=== PATIENT | female | born 1975 | race Caucasian/White ===

== ENCOUNTER 2016-12-17 08:29 | Day surgery (SDC) | payer OTHER ==
[~2016-12-17 08:29] MED LIST: DIPHENHYDRAMINE HCL 50 MG/ML VIAL ONE; EPINEPHRINE INJ 1 MG/10 ML DISP.SYRIN ONE; FLUMAZENIL INJ 0.5 MG/5 ML VIAL IV ONE; GLUCAGON,HUMAN RECOMB 1 MG INJ ONE; NALOXONE HCL INJ/PF 0.4 MG/1 ML SDV ONE; ONDANSETRON HCL INJ/PF 4 MG/2 ML SDV ONE; PROMETHAZINE HCL INJ 25 MG/1 ML VIAL ONE
[2016-12-17] MEDS: MIDAZOLAM 2 MG/2 ML INJ ONE ×3 (09:02→09:09)
[2016-12-17] MEDS: FENTANYL CITRATE INJ/PF 100 MCG/2 ML AMPUL ONE ×2 (09:04→09:06)
--- NOTE | 2016-12-17 09:15 | Operative Report ---
Operative Report DATE OF SURGERY: 12/17/16 Operative Report: The risks benefits and alternatives of the procedure explained to the patient in detail and informed consent is obtained that GIF Olympus video scope was inserted into the patient's mouth and hypopharynx the esophagus is identified intubated and insufflated the scope was then advanced through the esophagus stomach and duodenum retroflexion maneuver is done the esophagus stomach and first and second portions of the duodenum examined PREOPERATIVE DIAGNOSIS: Dysphagia POSTOPERATIVE DIAGNOSIS: Esophageal rings and furrows suggestive of eosinophilic esophagitis. Hiatal hernia. Esophagitis. Gastritis OPERATION: EGD with biopsy SURGEON: MAGALIE DREW ANESTHESIA: Moderate Sedation - 4 mg of Versed, 50 g of fentanyl. TISSUE REMOVED OR ALTERED: Esophageal specimens to confirm eosinophilic esophagitis. Gastritis status post biopsy rule out Helicobacter pylori COMPLICATIONS: None. ESTIMATED BLOOD LOSS: none. INTRAOPERATIVE FINDINGS: As described above. PROCEDURE: Patient tolerated the procedure well. No immediate postprocedure complications are noted. Patient is discharged in good condition. Discharge date 12/17/2016. Discharge diet: Regular. Discharge activity: Regular. 2-3 week follow-up to discuss findings. Await on biopsies. Patient is instructed to call the office or proceed to the emergency room should there be any further problems or questions.
[2016-12-17 10:31] VITALS: BP 112/79
== END 2016-12-17 10:30 | disposition home or self-care (01) ==
LOC: END 08:29
PROVIDERS: ATTEND Internal Medicine Gastroenterology
PROC: 0DB58ZX Excision of Esophagus, Via Natural or Artificial Opening Endoscopic, Diagnostic (ICD-10-PCS; 2016-12-17)
PROC: 0DB68ZX Excision of Stomach, Via Natural or Artificial Opening Endoscopic, Diagnostic (ICD-10-PCS; principal; 2016-12-17 09:00)
DX: K29.50 Unspecified chronic gastritis without bleeding (principal); B96.81 Helicobacter pylori [H. pylori] as the cause of diseases classified elsewhere; K44.9 Diaphragmatic hernia without obstruction or gangrene; K20.9 Esophagitis, unspecified; G43.909 Migraine, unspecified, not intractable, without status migrainosus; Z79.899 Other long term (current) drug therapy
CPT/HCPCS: 43239; 88342 ×2; 88305 ×2; J2250; J3010; J0171; J1200; J1610; J2310; J2405; J2550; J3490

== ENCOUNTER 2018-11-13 09:19 | Outpatient (CLI) | payer OTHER | END 2018-11-13 09:55 | disposition home or self-care (01) | LOC: LC 09:19 | PROVIDERS: ATTEND Obstetrics & Gynecology | PROC: 4A1HXCZ Monitoring of Products of Conception, Cardiac Rate, External Approach (ICD-10-PCS; principal; 2018-11-13) | DX: Z34.93 Encounter for supervision of normal pregnancy, unspecified, third trimester (principal) | CPT/HCPCS: 59025 ==

== ENCOUNTER 2018-11-27 21:40 | Inpatient (IN) | payer OTHER ==
[2018-11-27 22:37] LABS: ABSOLUTE BASOPHILS # (AUTO) 0.1 10^3/uL (0.0-0.2); ABSOLUTE EOSINOPHILS # (AUTO) 0.2 10^3/uL (0.0-0.6); ABSOLUTE LYMPHOCYTES (AUTO) 2.3 10^3/uL (0.5-4.7); ABSOLUTE MONOCYTES (AUTO) 0.9 10^3/uL (0.1-1.4); ABSOLUTE NEUT (AUTO) 8.8 10^3/uL (1.7-8.2); BASOPHILS % (AUTO) 1.1 % (0-2); EOSINOPHILS % (AUTO) 1.2 % (0-6); HEMATOCRIT 34.7 % (36.0-47.0); HEMOGLOBIN 11.9 g/dL (12.0-15.5); LYMPHOCYTES % (AUTO) 18.4 % (13-45); MEAN CORPUSCULAR HEMOGLOBIN 29.5 pg (27.0-33.4); MEAN CORPUSCULAR HGB CONC 34.4 g/dL (32.0-36.0); MEAN CORPUSCULAR VOLUME 86 fl (80-97); MONOCYTES % (AUTO) 7.2 % (3-13); PLATELET COUNT 193 10^3/uL (150-450); RED BLOOD COUNT 4.05 10^6/uL (3.72-5.28); RED CELL DISTRIBUTION WIDTH 14.8 % (11.5-14.0); SEGMENTED NEUTROPHILS % (AUTO) 72.1 % (42-78); TOTAL CELLS COUNTED % (AUTO) 100 %; WHITE BLOOD COUNT 12.3 10^3/uL (4.0-10.5)
[2018-11-27 22:54] LABS: URINE AMPHETAMINES SCREEN NEGATIVE; URINE BARBITURATES SCREEN NEGATIVE; URINE BENZODIAZEPINES SCREEN NEGATIVE; URINE COCAINE SCREEN NEGATIVE; URINE MARIJUANA (THC) SCREEN NEGATIVE; URINE METHADONE SCREEN NEGATIVE; URINE PHENCYCLIDINE SCREEN NEGATIVE
[2018-11-27] MEDS ORDERED: LIDOCAINE 1% INJ-PF (10 MG/ML) 30 ML SDV ONE (22:54)
[2018-11-27] MEDS ORDERED: DINOPROSTONE 10 MG VAGINAL INSERT.SR ONE (22:54)
[2018-11-27] MEDS ORDERED: MISOPROSTOL 0.2 MG TABLET ONE (22:54)
[2018-11-27] MEDS ORDERED: OXYTOCIN/NORMAL SALINE 20 UNIT/1,000 ML RTUINJ ONE (22:54)
[2018-11-27] MEDS ORDERED: OXYTOCIN 10 UNIT/ML VIAL ONE (22:54)
--- NOTE | 2018-11-28 06:13 | Admission Physical ---
Datetime Report Generated by CPN: 11/28/2018 06:12 CURRENT ADMISSION Chief Complaint: Scheduled Induction of Labor Indication for Induction: Chronic Primary/Essential HTN; Maternal Diabetes; Other Indication for Induction- Other: AMA Admit Impression : Induction of Labor Admit Plan: Admit to Unit; Initiate Labor Induction Protocol ALLERGIES Medication Allergies: No Medication Allergies: No Known Allergies (11/27/2018) Latex: No Latex Allergies Food Allergies: n/a Environmental Allergies: n/a OBSTETRICAL HISTORY EDC: 12/05/2018 00:00 : 3 Para: 2 Term: 2 : 0 SAB: 0 IAB: 0 Ectopic: 0 Livin Cesareans: 0 VBACs: 0 Multiple Births: 0 Gestational Diabetes: Yes Rh Sensitization: No Incompetent Cervix: No ASTER: No Infertility: No ART Treatment: No Uterine Anomaly: No IUGR: No Hx Previous C/S: No Macrosomia: No Hx Loss/Stillborn: No PIH: No Hx : No Placenta Previa/Abruption: No Depression/PP Depression: No PTL/PROM: No Post Hemorrhage: No Current Procedures: Ultrasound; NST Obstetrical History Comments: G1 - G2 - G3 - SEE RECORDS Alcohol: No Marijuana : No Cocaine: No Other Illicit Drugs: No Cigarettes: Never Smoker. 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 Breast at age 19 INFECTIOUS HISTORY Gonorrhea: No Genital Herpes: No Chlamydia: No Tuberculosis: No Syphilis: No Hepatitis: No HIV/AIDS Exposure: No Rash or Viral Illness: No HPV: No PHYSICAL EXAM General: Normal HEENT: Normal Neurologic: Normal Thyroid: Normal Heart: Normal Lungs: Normal Breast: Normal Back: Normal Abdomen: Normal Genitourinary Exam: Normal Extremities: Normal DTRs: Normal Pelvic Type: Adequate Vital Signs: Reviewed; Within Normal Limits VAGINAL EXAM Dilatation: 2 Effacement: 25 Station: -3 MEMBRANES Pooling: Negative Membranes: Intact FETUS A EGA: 39.0 Monitoring: External US FHR- Baseline: 120 Variability: Moderate 6-25bpm Accelerations: 15X15 Decelerations: None FHR Category: Category I Estimated Weight (gm): 3600 Presentation: Vertex PLANS FOR LABOR AND DELIVERY Labor and Delivery: Plan Pain Management: Natural; Medications; Epidural Feeding Preference: Breast Benefit of Breast Feed Discussed: Yes Circumcision: Yes INFORMED CONSENT Signature: with User ID: [email or web address]
--- NOTE | 2018-11-28 13:15 | L&D Progress Notes ---
PROGRESS NOTES Datetime Report Generated by CPN: 11/28/2018 13:15 PROGRESS NOTE Impression: Normal Progression of Labor; Reassuring Heart Rate Procedures: Artificial ROM; Sterile Vag Exam Plan: Induction Vital Signs : Reviewed; Within Normal Limits Comment: at 39 wks for IOL d/t GDM and AMA. s/p Cervidil overnight, pt now uncomfortable with increasing contractions. GBS negative. VE 4/50/-2. AROM w/ clear blood tinged fluid. Pt considering an epidural. Position changes encouarged. Attending MD is Dr Maher VAGINAL EXAM Dilatation: 4 Dilatation: 2 Effacement: 50 Effacement: 25 Station: -2 Station: -3 Contractions: 1-2 LAST VAGINAL EXAM-NURSING Dilitation: 3-4 Dilitation: 2.0 Effacement: 50 Effacement: 25 Station: -2 Station: -3 Contractions: Uterine Irritability noted. MEMBRANES Pooling: Negative Membranes: Ruptured Membranes: Intact Amniotic Fluid Color: Bloody FETUS A FHR - Baseline: 145 Monitoring: External US Variability: Moderate 6-25bpm Accelerations: 15X15 Decelerations: None : 39.0 Estimated Weight (gm): 3600 Presentation: Vertex SIGNATURE SIGNATURE: [id number];[id number];[id number] SIGNATURE: [id number];[id number] SIGNATURE: [id number] Assignment: Adriana Reed MD Signature: with User ID: [email or web address] : with User ID: [email or web address]
[2018-11-28] MEDS: RINGERS SOLUTION,LACTATED 1,000 ML IV PRN ×3 (13:34→15:34)
[2018-11-28] MEDS ORDERED: RINGERS SOLUTION,LACTATED 300 ML IV ONE (13:37)
[2018-11-28] MEDS ORDERED: FENTANYL CITRATE INJ/PF 100 MCG/2 ML AMPUL ONE (13:54)
[2018-11-28] MEDS ORDERED: EPHEDRINE SULFATE INJ 50 MG/1 ML AMPULE ONE (13:54)
[2018-11-28] MEDS ORDERED: PHENYLEPHRINE HCL INJ/PF 10 MG/1 ML SDV ONE (13:54)
[2018-11-28] MEDS ORDERED: BUPIVACAINE HCL 0.25 % INJ/PF (2.5 MG/1 ML) 30 ML VIAL ONE (13:55)
[2018-11-28] MEDS ORDERED: FENTANYL/BUPIVACAINE/NS/PF 300 MCG/150 ML RTUINJ EPI ONE (13:55)
[2018-11-28] MEDS ORDERED: LIDOCAINE 1.5%/EPINEPHRINE INJ-PF 30 ML SDV ONE (13:55)
--- NOTE | 2018-11-28 15:22 | L&D Progress Notes ---
PROGRESS NOTES Datetime Report Generated by CPN: 11/28/2018 15:21 PROGRESS NOTE Impression: Normal Progression of Labor Procedures: Sterile Vag Exam Plan: Continue Present Management Plan Other: position changes Informed Consent Obtained: Vaginal Delivery Vital Signs : Reviewed; Within Normal Limits Comment: Epidural in place and pt is comfortable. Laboring spontaneously since the Cervidil used overnight. GBS negative, VE /-2 Pt to high fowlers position due to variable decels. Anticipate . Attending MD is Dr Younger VAGINAL EXAM Dilatation: 6 Effacement: 90 Station: -2 Contractions: q2-3 Dilitation: 6.0 Effacement: 80 Station: -2 FETUS A FHR - Baseline: 140 Monitoring: External US Variability: Moderate 6-25bpm Accelerations: 15X15 Decelerations: Variable FHR Category: Category II FETUS C SIGNATURE: [id number];[id number];[id number] Assignment: Adriana Reed MD Signature: with User ID: [email or web address] : with User ID: [email or web address]
[2018-11-28] MEDS ORDERED: ACETAMINOPHEN 325 MG TABLET ONE (17:07)
[2018-11-28] MEDS ORDERED: ZOLPIDEM TARTRATE 5 MG TABLET PO PRN (17:54)
[2018-11-28] MEDS ORDERED: ACETAMINOPHEN WITH CODEINE #3 TABLET PO PRN ×2 (17:54)
[2018-11-28] MEDS ORDERED: DIPH/PERTUSS(ACELL)/TETANUS VAC/PF 0.5 ML SYR (>=10YO) IM PRN (17:54)
[2018-11-28] MEDS ORDERED: OXYTOCIN/NORMAL SALINE 20 UNIT/1,000 ML RTUINJ IV PRN (17:54)
[2018-11-28] MEDS ORDERED: DIBUCAINE 1% OINTMENT 28 GM TP PRN (17:54)
[2018-11-28] MEDS ORDERED: BENZOCAINE/MENTHOL AEROSOL SPRAY 56 ML TOP PRN (17:54)
[2018-11-28] MEDS ORDERED: ACETAMINOPHEN 325 MG TABLET PO ONE (18:00)
--- NOTE | 2018-11-28 19:53 | Delivery Summary ---
Del Sum A-C Datetime Report Generated by CPN: 11/28/2018 19:52 DELIVERY PERSONNEL DELIVERY PERSONNEL: [id number] Delivery Doctor:: Adriana Reed MD Labor and Delivery Nurse:: Moody Wan RNrhic systems safety engineer Nurse:: Javier Theodore RN Park Guide/GENERAL FOUNDRY WORKER: Katrin Gómez CNA II Additional Personnel: : Paige Montes RN MATERNAL INFORMATION Delivery Anesthesia: Epidural Medications After Delivery: Pitocin Bolus-Please Comment; Pitocin Drip 20 Units/1000ml NSS Meds After Delivery Comment: Pitocin 20 units in 1 L NS bolusing per order Maternal Complications: Maternal Fever Provider Comments: of a viable male with an OA presentation; APGARS 9, 10; 1st degrees vag lac LABOR SUMMARY EDC: 12/05/2018 00:00 No. Babies in Womb: 1 Attempted: No Labor Anesthesia: None LABOR INFORMATION Reason for Induction: Maternal Diabetes Onset of Labor: 11/28/2018 15:12 Complete Dilatation: 11/28/2018 17:29 Cervical Ripening Agents: Cervidil (Annotations: removed by patient) Oxytocin: Induction Group B Beta Strep: negative Antibiotics # of Doses: 0 Antibiotics Time of Last Dose: n/a Name of Antibiotic Given: n/a Steroids Given: None Reason Steroids Not Administered: Not Applicable MEMBRANES Membranes Rupture Method: Artificial Rupture of Membranes: 11/28/2018 13:07 Length of Rupture (hr): 4.60 Amniotic Fluid Color: Clear Amniotic Fluid Amount: Small Amniotic Fluid Odor: Normal STAGES OF LABOR Stage 1 hr: 2 Stage 1 min: 17 Stage 2 hr: 0 Stage 2 min: 14 Stage 3 hr: 0 Stage 3 min: 3 Total Time in Labor hr: 2 Total Time in Labor min: 34 VAGINAL DELIVERY Episiotomy: None Laceration #1: Vaginal Laceration Extension #1: First Degree Laceration Repair: Yes Laceration Repair Note: 1st degree vaginal lac repaired with 3-0 chromic w/o complicatpn Sponge Count Correct: Yes Sharps Count Correct: Yes CSECTION DELIVERY Primary Indication: N/A Secondary Indication: N/A CSection Incidence: N/A Labor: N/A Elective: N/A CSection Incision: N/A BABY A INFORMATION Infant Delivery Date/Time: 11/28/2018 17:43 Method of Delivery: Vaginal Born in Route : No : N/A Forceps: N/A Vacuum Extraction: N/A Shoulder Dystocia : No PRESENTATION/POSITION BABY A Presentation: Cephalic Cephalic Presentation: Vertex Vertex Position: Left Occipital Anterior Breech Presentation: N/A PLACENTA INFORMATION BABY A Placenta Delivery Time : 11/28/2018 17:46 Placenta Method of Delivery: Spontaneous Placenta Status: Delivered SCORES BABY A Heart Rate 1 min: >100 bpm Resp Effort 1 min: Good Cry Reflex Irritability 1 min: Cough or Sneeze or Pulls Away Muscle Tone 1 min: Active Motion Color 1 min: Body Causey, Extremities Blue Resuscitation Effort 1 min: Tactile Stimulation SCORE 1 MIN: 9 Heart Rate 5 min: >100 bpm Resp Effort 5 min: Good Cry Reflex Irritability 5 min: Cough or Sneeze or Pulls Away Muscle Tone 5 min: Active Motion Color 5 min: Completely Causey Resuscitation Effort 5 min: N/A SCORE 5 MIN: 10 INFORMATION BABY A Gestational Age at Delivery: 39.0 Gestational Status: Full Term- 39- 40.6 Weeks Infant Outcome : Liveborn Infant Condition : Stable Infant Sex: Male IDENTIFICATION BABY A Infant Verification Date/Time: 11/28/2018 18:09 ID Band Number: [id number] Mother's Name Verified: Yes Infant RN Verifying : RTracey Montes, RN and T. Savage, RN WEIGHT/LENGTH BABY A Birthweight (gm): 3784 Infant Weight (lb): 8 Weight (oz): 5 Length (in): 21.00 Length (cm): 53.34 CORD INFORMATION BABY A No. Cord Vessels: 3 Nuchal Cord : N/A Cord Blood Taken: Yes-For Storage (Mom's Blood type +) Infant Suction: Mouth ASSESSMENT BABY A Infant Complications: None Physical Findings at Delivery: Within Normal Limits Infant Respirations: Appears Normal Skin to Skin: Yes Email Marketing Assistant/ALS Called : No Transferred To: Remains with Mother BABY B INFORMATION : N/A SIGNATURES Signature: with User ID: [email or web address]
[2018-11-28] MEDS: IBUPROFEN 800 MG TABLET PO SCH (22:12)
[2018-11-29] MEDS: IBUPROFEN 800 MG TABLET PO SCH ×3 (06:05→22:31)
[2018-11-29 07:43] LABS: HEMATOCRIT 32.5 % (36.0-47.0); HEMOGLOBIN 10.9 g/dL (12.0-15.5); MEAN CORPUSCULAR HEMOGLOBIN 29.2 pg (27.0-33.4); MEAN CORPUSCULAR HGB CONC 33.6 g/dL (32.0-36.0); MEAN CORPUSCULAR VOLUME 87 fl (80-97); PLATELET COUNT 179 10^3/uL (150-450); RED BLOOD COUNT 3.74 10^6/uL (3.72-5.28); RED CELL DISTRIBUTION WIDTH 14.9 % (11.5-14.0); WHITE BLOOD COUNT 12.4 10^3/uL (4.0-10.5)
[2018-11-29] MEDS: FERROUS SULFATE 325 MG TABLET PO SCH ×3 (11:01→18:22)
[2018-11-29] MEDS: PRENATAL VITAMIN W DHA CAPSULE PO SCH (11:02)
[2018-11-29] MEDS: SENNOSIDES/DOCUSATE 8.6-50 MG 1 EACH TABLET PO SCH (11:02)
[2018-11-29] MEDS: DOCUSATE SODIUM 100 MG CAPSULE PO SCH ×3 (11:02→18:22)
--- NOTE | 2018-11-29 14:10 | PDOC PROGRESS REPORT ---
Subjective-OB Progress Note for:: 11/29/18 Subjective: Pt doing well, no concerns. She reports light bleeding, reg diet and voiding without difficulty. No concerns. Physical Exam (OB) Vital Signs: Temp Pulse Resp BP Pulse Ox 97.6 F 86 16 118/67 99 11/29/18 08:30 11/29/18 08:30 11/29/18 08:30 11/29/18 08:30 11/29/18 08:30 Intake & Output 11/28/18 11/29/18 11/30/18 06:59 06:59 06:59 Intake Total 550 500 Balance 550 500 Weight 121.6 kg - Lochia Lochia Amount: Moderate 25-50 ml Lochia Color: Rubra/Red - Abdomen Description: Soft Hernia Present: No Fundal Description: Firm, Midline Fundal Height: u/u - u/2 Objective-Diagnostic Laboratory: 11/29/18 06:46 11/29/18 06:46 WBC 12.4 H RBC 3.74 Hgb 10.9 L Hct 32.5 L MCV 87 MCH 29.2 MCHC 33.6 RDW 14.9 H Plt Count 179 Assessment and Plan(PN) - Assessment and Plan (1) Vaginal delivery Is this a current diagnosis for this admission?: Yes - Time Spent with Patient Time with patient: Less than 15 minutes Medications reviewed and adjusted accordingly: Yes - Disposition Anticipated Discharge: Home Within: within 24 hours
[2018-11-30] MEDS: IBUPROFEN 800 MG TABLET PO SCH ×2 (06:18→14:18)
--- NOTE | 2018-11-30 09:51 | PDOC PROGRESS REPORT ---
Subjective-OB Progress Note for:: 11/30/18 Subjective: Doing well, no c/o, OOB walking, voiding, FOB in room, , ready to go home Physical Exam (OB) Vital Signs: Temp Pulse Resp BP Pulse Ox 97.4 F 86 17 136/88 H 97 11/30/18 08:10 11/30/18 08:10 11/30/18 08:10 11/30/18 08:10 11/30/18 08:10 Intake & Output 11/29/18 11/30/18 12/01/18 06:59 06:59 06:59 Intake Total 550 500 Balance 550 500 - PIH/Pre-Eclampsia DTR's: 2 + Clonus: Negative Headache: Absent Epigastric Pain: No Visual Changes: No - Lochia Lochia Amount: Scant < 10 ml Lochia Color: Rubra/Red - Abdomen Description: Soft, Round Hernia Present: No Fundal Description: Firm, Midline Fundal Height: u/u - u/2 Objective-Diagnostic Laboratory: 11/29/18 06:46 Assessment and Plan(PN) - Assessment and Plan (1) Chronic hypertension in Is this a current diagnosis for this admission?: Yes (2) Gestational diabetes mellitus Qualifiers: Gestational diabetes mellitus control: diet-controlled Is this a current diagnosis for this admission?: Yes (3) AMA (advanced maternal age) primigravida 35+ Qualifiers: Trimester: first trimester Qualified Code(s): O09.511 - Supervision of elderly primigravida, first trimester Is this a current diagnosis for this admission?: Yes (4) Vaginal delivery Is this a current diagnosis for this admission?: Yes - Time Spent with Patient Time with patient: Less than 15 minutes Medications reviewed and adjusted accordingly: Yes - Disposition Anticipated Discharge: Home Within: within 24 hours
--- NOTE | 2018-11-30 09:59 | PDOC DISCHARGE SUMMARY ---
Final Diagnosis Discharge Date: 11/30/18 - Final Diagnosis (1) Chronic hypertension in Is this a current diagnosis for this admission?: Yes (2) Gestational diabetes mellitus Is this a current diagnosis for this admission?: Yes (3) AMA (advanced maternal age) primigravida 35+ Is this a current diagnosis for this admission?: Yes (4) Vaginal delivery Is this a current diagnosis for this admission?: Yes Discharge Data - Discharge Medication Prescriptions: Ibuprofen [Motrin 800 mg Tablet] 800 mg PO Q8 #60 tablet Home Medications: Pnv No.95/Ferrous Fum/Folic AC [ Multivitamin Tablet] 1 each PO DAILY 11/13/18 Ibuprofen [Motrin 800 mg Tablet] 800 mg PO Q8 #60 tablet 11/30/18 Gestational Age: 39 Reason(s) for Admission: Induction of Labor, Gestional Diabetes, Advanced Maternal Age Admission Note: chronic hypertension Procedures: NST, Ultrasound Intrapartum Procedure(s): Spontaneous Vaginal Delivery Complication(s): Laceration-Vaginal Laceration-Degree: 1st - [place] Data Baby 1 Male at 1 minute: 9 at 5 minutes: 10 Weight: 3.77 kg Home with Mother: Yes Complications: No - Diagnosis Test Laboratory: Temp Pulse Resp BP Pulse Ox 97.4 F 86 17 136/88 H 97 11/30/18 08:10 11/30/18 08:10 11/30/18 08:10 11/30/18 08:10 11/30/18 08:10 11/27/18 11/27/18 11/29/18 22:00 22:06 06:46 RBC 4.05 3.74 Hgb 11.9 L 10.9 L Hct 34.7 L 32.5 L Urine Opiates Screen NEGATIVE - Discharge information/Instructions Discharge Activity: No Lifting Over 10 Pounds, No Lifting/Push/Pulling, Pelvic Rest Discharge Diet: As Tolerated, Regular Disposition: HOME, SELF-CARE Follow up with: [facility] in: 1, Weeks
[2018-11-30 10:35] VITALS: BP 136/83
[2018-11-30] MEDS: SENNOSIDES/DOCUSATE 8.6-50 MG 1 EACH TABLET PO SCH (11:39)
[2018-11-30] MEDS: DOCUSATE SODIUM 100 MG CAPSULE PO SCH (11:40)
[2018-11-30] MEDS: FERROUS SULFATE 325 MG TABLET PO SCH (11:40)
[2018-11-30] MEDS: PRENATAL VITAMIN W DHA CAPSULE PO SCH (11:40)
[2018-11-30] MEDS ORDERED: DIPH/PERTUSS(ACELL)/TETANUS VAC/PF 0.5 ML SYR (>=10YO) IM PRN (15:30)
== END 2018-11-30 15:37 | disposition home or self-care (01) | DRG 807 ==
LOC: LR 21:40 → 2N 11-28 20:02
PROVIDERS: ADMIT Obstetrics & Gynecology; ATTEND Obstetrics & Gynecology
PROC: 10E0XZZ Delivery of Products of Conception, External Approach (ICD-10-PCS; principal; 2018-11-28)
PROC: 0HQ9XZZ Repair Perineum Skin, External Approach (ICD-10-PCS; 2018-11-28)
DX: O10.02 Pre-existing essential hypertension complicating childbirth (principal); Z37.0 Single live birth; O24.420 Gestational diabetes mellitus in childbirth, diet controlled; O99.214 Obesity complicating childbirth; O70.0 First degree perineal laceration during delivery; Z3A.39 39 weeks gestation of pregnancy
CPT/HCPCS: 36415; 80307; 85025; 85027; 86592; 86850; 86900; 86901; 94760; J2370; J2590; J3010; J3490